=== PATIENT | female | born 1955 ===

== ENCOUNTER 2023-07-22 04:24 | Inpatient (IN) | payer MEDICAID, SELFPAY ==
[2023-07-22] VITALS (7 sets, daily range): BP systolic 113–179; BP diastolic 44–72; PULSE 86–98; RESP 16–28; TEMP 36.4–37.1; O2SAT 94–100; BMI 26.9
--- NOTE | ~2023-07-22 | CT_ITS ---
CT of the Abdomen and Pelvis: Indication: Abdominal pain Technique: 2.5 mm axial scans were obtained through the abdomen and pelvis following intravenous adm inistration of 100 cc of Omnipaque 350. Dose reduction technique was used on this scan by utilizing a utomated exposure control and iterative reconstruction technique. The dose-length product (DLP) was 4 00.35 mGy-cm. Findings: Scans through the lung bases are unremarkable. The liver, spleen, pancreas, gallbladder, adrenals and left kidney are within normal limits. There is extensive right perinephric stranding/fluid, with mild right hydronephrosis, and mildly delayed righ t nephrogram as compared to the left side. No radiopaque stones seen currently. No evidence of aortic aneurysm. No lymphadenopathy. No bowel obstruction or bowel wall thickening. There is no evidence to suggest acute appendicitis. Images through the pelvis were performed. Urinary bladder unremarkable. No adnexal mass seen. No pelv ic ascites. Impression: Mild right hydroureteronephrosis with extensive right perinephric fluid/stranding and mildly delayed right nephrogram. Findings suggest sequela of recently passed stone. No definite stone seen currently . No definite evidence for pyelonephritis. Correlate with urinalysis. Reviewed, dictated and finalized at location . ER Impression: Mild right hydroureteronephrosis with extensive right perinephric fluid/strandi ng and mildly delayed right nephrogram. Findings suggest sequela of recently pa ssed stone. No definite stone seen currently. No definite evidence for pyelonep hritis. Correlate with urinalysis.
--- NOTE | 2023-07-22 05:07 | ED.GENADULT ---
HPI - General Adult General Chief complaint: Abdominal Pain Stated complaint: RLQ pain Time Seen by Provider: 07/22/23 04:55 History of Present Illness HPI narrative: patient 68-year-old female who presents emergency department with chief complaint of right lower quadrant abdominal pain. Patient reports been having pain since yesterday reports that some nausea and vomiting with this as well denies constipation reports she is passing gas and had a normal bowel movement. Related Data Allergies Allergy/AdvReac Type Severity Reaction Status Date / Time No Known Allergies Allergy Verified 07/22/23 04:35 Review of Systems Review of Systems: A 10 system review of systems was completed on the patient and is negative except for what is stated in the HPI. Nursing and ancillary documentation was reviewed. Exam Narrative: GENERAL: Well-appearing, well-nourished, and in no acute distress. HEAD: Normocephalic, atraumatic. EYES: PERRLA and EOMI. ENT: Nares clear, no rhinorrhea or epistaxis. Mucous membranes moist. NECK: Supple. CHEST: Clear to auscultation. No respiratory distress. HEART: Regular rate and rhythm. No murmur heard. Normal peripheral pulses. ABDOMEN: Soft, Tenderness to palpation the right lower quadrant, nondistended, normal active bowel sounds. EXTREMITIES: Normal range of motion. No edema. SKIN: Warm, dry, no rash. NEURO: No focal deficits. Alert and oriented x3. PSYCH: Normal mood and affect. Course Vital Signs Vital signs: Vital Signs Temperature 36.4 C 07/22/23 04:28 Pulse Rate 98 07/22/23 04:28 Respiratory Rate 16 07/22/23 04:28 Blood Pressure 179/72 H 07/22/23 04:28 Pulse Oximetry 100 07/22/23 04:28 Oxygen Delivery Room Air 07/22/23 04:28 Temperature 36.4 C 07/22/23 04:28 Pulse Rate 98 07/22/23 04:33 Respiratory Rate 26 H 07/22/23 04:33 Blood Pressure 164/64 H 07/22/23 04:33 Pulse Oximetry 99 07/22/23 04:33 Oxygen Delivery Room Air 07/22/23 04:28 Medical Decision Making [facility] Narrative Medical decision making narrative: differential diagnosis includes appendicitis, diverticulitis, colitis, UTI, pyelonephritis, obstructing ureterolithiasis laboratory studies showed white count [id number] urinalysis showed 50-100 wbc's in the urine creatinine was 1.1 CT scan of the abdomen pelvis showed Mild right hydroureteronephrosis with extensive right perinephric fluid/stranding and mildly delayed right nephrogram. Findings suggest sequela of recently passed stone. No definite stone seen currently. No definite evidence for pyelonephritis. Correlate with urinalysis. Vital Signs Vital Signs: Vital Signs Temperature 36.4 C 07/22/23 04:28 Pulse Rate 98 07/22/23 04:28 Respiratory Rate 16 07/22/23 04:28 Blood Pressure 179/72 H 07/22/23 04:28 Pulse Oximetry 100 07/22/23 04:28 Oxygen Delivery Room Air 07/22/23 04:28 Temperature 36.4 C 07/22/23 04:28 Pulse Rate 98 07/22/23 04:33 Respiratory Rate 26 H 07/22/23 04:33 Blood Pressure 164/64 H 07/22/23 04:33 Pulse Oximetry 99 07/22/23 04:33 Oxygen Delivery Room Air 07/22/23 04:28 Discharge Plan Discharge Clinical Impression: Acute pyelonephritis, Leukocytosis Patient Disposition: Still a Patient Condition: Stable Instructions: Antibiotic Form Follow-up/Referrals: PHYSICIAN,GENERATOR REBUILDER [Primary Care Provider] - Time of Disposition: 06:23
[2023-07-22] MEDS: MORPHINE SULFATE (*CRX) 4 MG/ML INJ IV PUSH (05:18)
[2023-07-22] MEDS: ONDANSETRON INJ 4 MG/2 ML VIAL IV PUSH (05:19)
[2023-07-22] MEDS: SODIUM CHLORIDE 0.9% IV 1,000 ML 999 ML IV CONT (05:19)
[2023-07-22 05:22] LABS: Appearance Urine Clear (Clear); Bacteria Urine None Seen /hpf; Bilirubin Urine Negative (Negative); Blood Urine Negative (Negative); Color Urine Yellow (Yellow); Glucose Urine UA 3+ mg/dL (Negative); Ketones Urine Negative (Negative); Leukocyte Esterase Ur 1+ LEU/UL (Negative); Nitrate Urine Negative (Negative); Non Pathogenic Casts 0-2; Protein Urine Trace mg/dL (Negative); RBC Urine 0-2 /hpf (0-2); Specific Grav Ur 1.014 (1.001-1.035); Squamous Epithelial Cell Urine None seen /hpf (Few); Urobilinogen Urine 0.2 mg/dL (<2.0); WBC Urine 51-100 /hpf; pH Urine 7.5 (5.0-9.0)
[2023-07-22 05:25] LABS: Hematocrit 39.2 % (37.0-47.0); Hemoglobin 13.2 g/dL (12.0-15.0); Mean Corpuscular HGB Conc 33.7 g/dl (32-36); Mean Corpuscular Hemoglobin 28.2 pg (26-34); Mean Corpuscular Volume 83.8 fl (80-100); Mean Platelet Volume 11.3 fl (7.4-10.4); Platelet Count Result 286 k/mm3 (150-375); Red Blood Count 4.68 M/mm3 (4.2-5.4); Red Cell Distribution Width 12.7 % (11.5-14.5); White Blood Count 21.7 K/mm3 (4.5-10.0)
[2023-07-22 05:34] LABS: Lactic Acid Reflex 1.3 mmol/L (0.7-2.0)
[2023-07-22 05:36] LABS: Alanine Aminotransferase 21 U/L (6-35); Albumin Level 3.7 g/dL (3.5-5.1); Alkaline Phosphatase 135 U/L (38-126); Anion Gap 5 mmol/L (8-16); Aspartate Amino Transferase 31 U/L (14-36); Bilirubin,Total 0.9 mg/dL (0.2-1.3); Blood Urea Nitrogen 24 mg/dL (7-17); Carbon Dioxide 28 mmol/L (22-30); Chloride 102 mmol/L (98-107); Estimated Glomerular Filt Rate 50; Glucose 278 mg/dL (65-110); Lipase 118 U/L (23-300); Potassium 3.8 mmol/L (3.4-5.0); Sodium 135 mmol/L (137-145)
[2023-07-22 05:48] LABS: Add Urine Microscopic? YES
[2023-07-22 06:02] LABS: Band Neutrophils Percent 9 % (0-6); Lymphocytes Absolute Manual 0.43 K/mm3 (1.1-4.5); Monocytes Absolute Manual 0.65 K/mm3 (0.1-0.90); Monocytes Percent Manual 3 % (3-9); Neutrophils Absolute Manual 20.61 K/mm3 (1.7-7.2); Neutrophils Percent Manual 86 % (46-73); Platelet Estimate Adequate (Adequate); Total Cells Counted 100
[2023-07-22 06:03] LABS: Schistocytes None Seen (NORMAL)
--- NOTE | 2023-07-22 08:03 | ADMGEN ---
This patient, Alhaji Darby, was admitted to [address] [place] [address] Room 307-02 at 0800. Patient/family oriented to hospital policies and general routines including ID bracelet, bed and alarms, visiting hours, pain management, procedures, bathroom and other care routines, personal items, smoking policy, room service/diet, and visiting hours. Information on how to activate the Rapid Response Team has been discussed. Patient/Family are encouraged to report perceived risks to care and to ask questions if they do not understand what they are told or what they should do.
--- NOTE | 2023-07-22 08:52 | PM.IMHP ---
H&P: HPI History of Present Illness Date/Time: 07/22/23 08:52 Chief Complaint: Right flank pain Nausea and vomiting Narrative: Alhaji Darby is a 68 yo F with a mHx significant for obesity She presents with concerns of right flank pain with radiates downwards to the pelvis, is intermittent, rated 8-10, no known aggravating or alleviating factors, associated with nausea, vomiting, chills, malaise, fatigue and anorexia. She denies dizziness, chest pain, LOC, skin/joint changes. She does not smoke/chew tobacco, vape nicotine or consume recreational drugs; her family Hx is not contributory to the PC Work-up findings: UA: +glycosuria; +LE; WBC 51-100; -ve Bacteria; -ve Nitrite WBC 21 Hb 13 Platelet 286 Na 135 AG 5 BUN 24 Cr 1.1 GFR 50 ALP 135 CTAP: Mild right hydroureteronephrosis with extensive right perinephric fluid/stranding and mildly delayed right nephrogram. Findings suggest sequela of recently passed stone. No definite stone seen currently. No definite evidence for pyelonephritis. Correlate with urinalysis. She will be admitted, evaluated and managed for UTI with pyelonephritis. Review of Systems Constitutional: Constitutional: Reports body ache(s) and Reports fatigue ENT: Reports system reviewed and no additional complaints, except as documented Cardiovascular: Cardiovascular: Reports no additional cardiovascular complaints Respiratory: Respiratory: Reports no additional respiratory complaints Gastrointestinal: Gastrointestinal: Reports nausea and Reports vomiting Genitourinary: Genitourinary: Reports flank pain (right) Musculoskeletal: Musculoskeletal: Reports no additional musculoskeletal complaints Integumentary/Breasts: Skin/Breast: Reports dry skin Neurologic: Reports system reviewed and no additional complaints, except as documented Psychiatric: Psychiatric: Reports no additional psychiatric complaints [facility] Social History Social History Smoking status: Never smoker Alcohol intake: never Substance use: never Do You Feel Safe in your Home?: Yes Lack of Transportation: No Lack of Food: Never True Current Housing: I Have Housing Concerned About Future Housing: No Difficulty Paying Gas/Electric Bills: No Difficulty Paying for Meds: No Currently Unemployed: No Education: High School Diploma/GED Difficulty w/ Childcare or Family Care: No Spiritual care concerns: No Meds Home Medications and Allergies Home Medications Medication Instructions Recorded Confirmed Type No Home Medications 07/22/23 07/22/23 History Allergies Allergy/AdvReac Type Severity Reaction Status Date / Time No Known Allergies Allergy Verified 07/22/23 04:35 Vital Signs Vital Signs - 24 hr 07/22/23 04:28 07/22/23 04:33 07/22/23 05:43 Temperature 97.6 F Pulse Rate 98 98 87 Respiratory Rate 16 26 H 28 H Blood Pressure 179/72 H 164/64 H 150/61 H Pulse Oximetry 100 99 94 Oxygen Delivery Room Air 07/22/23 07:19 Temperature Pulse Rate 86 Respiratory Rate 23 H Blood Pressure 169/71 H Pulse Oximetry 96 Oxygen Delivery Exam Const: General: in distress HENMT: Ears: TM's normal bilaterally Mouth: Yes moist mucous membranes Eyes: General: appearance normal, both eyes and all related structures Pupils: Equal, round and reactive pupils present Neck: Neck: supple Resp: Effort & Inspection: normal respiratory effort Auscultation: clear to auscultation bilaterally and rales Cardio: Rate: regular rate Rhythm: regular rhythm GI: GI Palp: Yes Soft to palpation Auscultation: normal bowel sounds Skin: General skin exam: normal color Neuro: General: gait normal Motor exam (neuro): 5/5 motor strength present throughout Extrem: General: normal to inspection Psych: Mental Status: mental status grossly normal H&P: Results Labs Labs: Short CBC 07/22/23 Range/Units 05:1
[2023-07-22] MEDS: KETOROLAC 15 MG/ML VIAL (*BKC) IV PUSH ×3 (09:41→20:22)
[2023-07-22] MEDS: HYDROmorphone HCL INJ (*CRX) 1 MG/ML SYR 0.5 MG IV PUSH (09:42)
[2023-07-22] MEDS: PIPERACILLN/TAZ 3.375GM/NS50ML 3.375 GM/50 ML BAG IVPB ×3 (09:43→20:22)
[2023-07-22] MEDS: SODIUM CHLORIDE 0.9% IV 1,000 ML 100 ML IV CONT ×2 (09:43→20:21)
[2023-07-22] MEDS: ENOXAPARIN 40 MG/0.4 ML SYRINGE SUB-Q (09:46)
--- NOTE | 2023-07-22 15:52 | WPDURCON ---
Assessment and Plan Assessment and plan (1) Acute pyelonephritis: Code(s): N10 - Acute pyelonephritis Status: Acute Assessment and Plan: Radiographic findings appear consistent with acute pyelonephritis and patient endorses right flank pain. Continue with empiric antibiotics while awaiting culture results. No indication for surgical intervention at this time. Will monitor clinically and consider repeat CT scan tomorrow if lack of improvement. Urology Consult Note HPI Date Seen: 07/22/23 Requesting Physician: Leslie Hollingsworth MD Primary Care Provider: FINANCIAL SYSTEMS MANAGER PHYSICIAN Consult Narrative Narrative: Mehnaz Mane is a 68 year old female who is being seen in consultation for evaluation of right flank pain. She presented to the emergency department this morning with complaints of right lower quadrant and right flank pain. On arrival, she had a CT scan of her abdomen and pelvis which showed extensive right perinephric stranding with mild right hydronephrosis and mildly delayed right nephrogram without any visible stones. Findings may be related to recently passed stone versus possible pyelonephritis. The patient denies any history of kidney stones and does not believe that she passed a recent stone. She has no prior urologic issues and has never seen a urologist in the past. She complains of right flank pain. Denies back pain. Denies dysuria, hematuria, fever, or chills. She endorses some nausea this morning but this has resolved. She is tolerating her diet. She is afebrile and her vital signs are stable. Her white blood cell count is elevated at 21.7. Creatinine is minimally elevated at 1.1. No prior labs to establish baseline. UA is abnormal with positive leukocytes. A urine culture is pending. Of note, patient is Persian-speaking only. Information was obtained with assistance of virtual pheresis specialist. Review of Systems Review of Systems: All systems reviewed & are unremarkable except as noted in HPI and below [facility] Surgical History Surgical History (Updated 07/22/23 @ 15:58 by Patricia Harmon PA-C) No pertinent past surgical history Social History Social History Smoking status: Never smoker Alcohol intake: never Substance use: never Do You Feel Safe in your Home?: Yes Lack of Transportation: No Lack of Food: Never True Current Housing: I Have Housing Concerned About Future Housing: No Difficulty Paying Gas/Electric Bills: No Difficulty Paying for Meds: No Currently Unemployed: No Education: High School Diploma/GED Difficulty w/ Childcare or Family Care: No Spiritual care concerns: No Meds Home Medications and Allergies Home Medications Medication Instructions Recorded Confirmed Type No Home Medications 07/22/23 07/22/23 History Allergies Allergy/AdvReac Type Severity Reaction Status Date / Time No Known Allergies Allergy Verified 07/22/23 04:35 Vital Signs Vital Signs - 24 hr 07/22/23 04:28 07/22/23 04:33 07/22/23 05:43 Temperature 97.6 F Pulse Rate 98 98 87 Respiratory Rate 16 26 H 28 H Blood Pressure 179/72 H 164/64 H 150/61 H Pulse Oximetry 100 99 94 Oxygen Delivery Room Air 07/22/23 07:19 07/22/23 09:27 07/22/23 09:40 Temperature Pulse Rate 86 Respiratory Rate 23 H Blood Pressure 169/71 H Pulse Oximetry 96 96 Oxygen Delivery Room Air Room Air Exam Narrative: General: Awake, alert, comfortable, no acute distress HEENT: Normocephalic, atraumatic, sclerae anicteric Respiratory: Normal respiratory effort, no accessory muscle use Abdomen: Nondistended, soft, your to palpation in right lower quadrant and flank. No CVA tenderness Skin: Normal coloration, warm and dry Neurologic: No focal neuro deficits noted Psychiatric: Appropriate mood and affect, judgment and insight intact Results Labs 07/22/23 05:15
[2023-07-22 17:16] LABS: Hemoglobin A1C 11.7 % (<5.7)
[2023-07-23] MEDS: KETOROLAC 15 MG/ML VIAL (*BKC) IV PUSH (03:24)
[2023-07-23 04:35] VITALS: BP 119/64; PULSE 78; RESP 16; TEMP 36.9; O2SAT 98
[2023-07-23] MEDS: PIPERACILLN/TAZ 3.375GM/NS50ML 3.375 GM/50 ML BAG IVPB (05:39)
[2023-07-23] MEDS: SODIUM CHLORIDE 0.9% IV 1,000 ML 100 ML IV CONT ×2 (05:39→17:38)
[2023-07-23 07:17] LABS: Basophils Absolute Auto 0.1 K/mm3 (0.0-0.1); Basophils Percent Auto 0.4 % (0.2-1.2); Eosinophils Absolute Auto 0.1 K/mm3 (0-0.3); Eosinophils Percent Auto 0.3 % (0-4.4); Hematocrit 34.2 % (37.0-47.0); Immature Granulocyte Percent A 0.6 % (0-0.5); Lymphocytes Absolute Auto 0.61 K/mm3 (0.9-3.2); Lymphocytes Percent Auto 3.5 % (18.3-44.2); Mean Corpuscular HGB Conc 32.2 g/dl (32-36); Mean Corpuscular Hemoglobin 28.2 pg (26-34); Mean Corpuscular Volume 87.7 fl (80-100); Monocytes Absolute Auto 0.8 K/mm3 (0.1-0.6); Monocytes Percent Auto 4.3 % (2.6-8.5); Neutrophils Absolute Auto 15.8 K/mm3 (1.3-6.7); Neutrophils Percent Auto 90.9 % (45.5-73.1); Platelet Count Result 209 k/mm3 (150-375); Red Cell Distribution Width 13.3 % (11.5-14.5); White Blood Count 17.4 K/mm3 (4.5-10.0)
[2023-07-23 07:28] LABS: Alanine Aminotransferase 38 U/L (6-35); Alkaline Phosphatase 110 U/L (38-126); Anion Gap 5 mmol/L (8-16); Aspartate Amino Transferase 58 U/L (14-36); Bilirubin,Total 0.7 mg/dL (0.2-1.3); Blood Urea Nitrogen 24 mg/dL (7-17); Calcium 8.1 mg/dL (8.4-10.2); Carbon Dioxide 27 mmol/L (22-30); Chloride 104 mmol/L (98-107); Estimated CRCL calculation 27 ml/min; Estimated Glomerular Filt Rate 35; Glucose 260 mg/dL (65-110); Potassium 4.1 mmol/L (3.4-5.0); Sodium 136 mmol/L (137-145)
[2023-07-23] MEDS: ENOXAPARIN 40 MG/0.4 ML SYRINGE SUB-Q (08:36)
[2023-07-23] MEDS: ACETAMINOPHEN 325 MG TABLET 650 MG PO ×2 (08:44→16:35)
--- NOTE | 2023-07-23 09:48 | WPDUROPN2 ---
Progress Note: A&P Assessment and Plan (1) Acute pyelonephritis: Code(s): N10 - Acute pyelonephritis Status: Acute Assessment and Plan: Radiographic findings appear consistent with acute pyelonephritis and patient endorses right flank pain. Urine culture with growth of E coli. No indication for surgical intervention at this time. WBC has improved and she remains afebrile. Continue culture specific antibiotics. Continue to monitor clinically, consider repeat imaging if lack of improvement (2) Bacteremia: Code(s): R78.81 - Bacteremia Status: Acute Assessment and Plan: Preliminary blood cultures with growth of Gram-negative bacilli, continue empiric antibiotics per primary team while awaiting final cultures (3) RITA (acute kidney injury): Code(s): N17.9 - Acute kidney failure, unspecified Status: Acute Assessment and Plan: Slight increase in creatinine to 1.5 today. Continue to monitor serum creatinine closely. Subjective Subjective Date/Time Seen: 07/23/23 09:48 Interval history: She is feeling well today. Reports improvement in her right flank pain. Tolerating diet. Remains afebrile. Vital signs are stable. WBC has improved to 17.4. Hemoglobin is stable. Slight increase in creatinine to 1.5. Urine culture with growth of E coli and preliminary blood cultures with Gram-negative bacilli. Review of Systems Review of Systems: All systems reviewed & are unremarkable except as noted in HPI and below Exam Narrative: General: Awake, alert, comfortable, no acute distress HEENT: Normocephalic, atraumatic, sclerae anicteric Respiratory: Normal respiratory effort, no accessory muscle use Abdomen: Nondistended, soft, minimally tender to palpation in right lower quadrant and flank. No CVA tenderness Skin: Normal coloration, warm and dry Neurologic: No focal neuro deficits noted Psychiatric: Appropriate mood and affect, judgment and insight intact Objective Data Vital Signs Vital Signs: Vital Signs - 24 hr 07/22/23 16:00 07/22/23 21:04 07/22/23 20:00 Temperature 98.6 F 98.8 F Pulse Rate 92 90 Respiratory Rate 21 H 16 Blood Pressure 126/53 L 113/44 L Pulse Oximetry 97 96 Oxygen Delivery Room Air 07/23/23 04:35 Temperature 98.5 F Pulse Rate 78 Respiratory Rate 16 Blood Pressure 119/64 Pulse Oximetry 98 Oxygen Delivery Intake/Output Intake/Output: Intake & Output 07/20/23 07/21/23 07/22/23 07/23/23 23:59 23:59 23:59 23:59 Intake Total 3340 1360 Balance 3340 1360 Meds/Results Medications: Active Medications Generic Name Dose Route Start Last Admin Trade Name Freq PRN Reason Stop Dose Admin Acetaminophen 650 mg 07/22/23 08:53 07/23/23 08:44 Acetaminophen 325 Mg Tablet PO 650 mg Q4H PRN Administration Mild Pain (1-3) or Fever Enoxaparin Sodium 40 mg 07/22/23 09:00 07/23/23 08:36 Enoxaparin 40 Mg/0.4 Ml Syringe SUB-Q 40 mg DAILY GREG Administration Sodium Chloride 1,000 mls @ 100 mls/hr 07/22/23 08:55 07/23/23 05:39 Normal Saline Iv IV CONT 100 mls/hr .Q10H GREG Administration Ceftriaxone Sodium 2 gm in 100 mls @ 200 mls/hr 07/23/23 12:00 Rocephin 2 Gm/Ns 100 Ml IVPB DAILY GREG Radiology Results: ITS Impressions Abdomen/Pelvis CT 07/22/23 06:03 Impression: Mild right hydroureteronephrosis with extensive right perinephric fluid/stranding and mildly delayed right nephrogram. Findings suggest sequela of recently passed stone. No definite stone seen currently. No definite evidence for pyelonephritis. Correlate with urinalysis. Labs Labs: Laboratory Results - last 24 hr 07/22/23 07/23/23 16:41 06:52 WBC 17.4 H RBC 3.90 L Hgb 11.0 L Hct 34.2 L MCV 87.7 MCH 28.2 MCHC 32.2 RDW 13.3 Plt Count 209 MPV 12.0 H Immature Gran % (Auto) 0.6 H Neut % (Auto) 90.9 H Lymph % (Auto) 3.5 L [place] % (Auto)
--- NOTE | 2023-07-23 10:33 | PM.IMPN ---
Progress Note: A&P Assessment and Plan (1) Acute pyelonephritis: Code(s): N10 - Acute pyelonephritis Status: Acute (2) Bacteremia: Code(s): R78.81 - Bacteremia Status: Acute (3) RITA (acute kidney injury): Code(s): N17.9 - Acute kidney failure, unspecified Status: Acute Plan Sepsis w/o septic shock -Secondary to UTI/Pyelonephritis -UA and blood cultures gram negative bacilli -lactic pending wasn't drawn on admission -Ceftriaxone 2g IV pending sensitivity Pyelonephritis -CT Mild right hydroureteronephrosis with extensive right perinephric fluid/stranding and mildly delayed right nephrogram - urology consult and following - UA and blood shows g negative bacilli - ceftriaxone 2 g IV and sensitivities - if no resolution will need follow-up CT - WBC trending down bacteremia - gram-negative bacilli likely secondary to UTI - ceftriaxone 2 g IV pending sensitivities - follow-up blood cultures 48-72 hours post ABX therapy for clearance UTI -Urine cultures and blood cultures -Continue IV hydration. -Monitor CBC, CMP watch for sepsis. -Monitor vital signs. -Ceftriaxone -Monitor for obstructive uropathy current pyelonephritis -F/U CT if no improvement on Diabetes-NEW ONSET -Accu-Cheks a.c. HS -sliding scale insulin -started on 13U lantus HS -Hemoglobin A1c goal less than 7 Currently 11 -lipid panel pending -Diabetic diet -consult to dietitian -encourage lifestyle modifications and weight loss -Optimize Brian inhibitors and statins. -Watch for hypoglycemia/hypoglycemic protocol ordered Code status: Full code per patient DVT prophylaxis: SCD Stress ulcer prophylaxis: Protonix 40 daily PT/OT notes: ambulatory Disposition: patient admitted to medical-surgical unit for further evaluation and treatment pyelonephritis urology following if no resolution may need follow-up CT to rule out obstruction. Continued IV antibiotic therapy the sensitivities will also need follow-up blood cultures and 40-72 hours. Patient is ambulatory and will discharge with family medically stable. -Patient's previous records reviewed on admission -ER notes reviewed in detail on admission -discussed all findings and current treatment plan with patient/Family/POA -Consultations reviewed for recommendations -Patient's disposition for safe discharge discussed with sample case porter Dictation performed by [employer] direct speech recognition software, therefore environmental compliance technician variants and typographical errors may occur. Subjective Date/time seen: 07/23/23 10:33 Interval history: Chief Complaint: Right flank pain Nausea and vomiting Narrative: Alhaji Darby is a 68 yo F with a mHx significant for obesity She presents with concerns of right flank pain with radiates downwards to the pelvis, is intermittent, rated 8-10, no known aggravating or alleviating factors, associated with nausea, vomiting, chills, malaise, fatigue and anorexia. She denies dizziness, chest pain, LOC, skin/joint changes. She does not smoke/chew tobacco, vape nicotine or consume recreational drugs; her family Hx is not contributory to the PC Work-up findings: UA: +glycosuria; +LE; WBC 51-100; -ve Bacteria; -ve Nitrite WBC 21 Hb 13 Platelet 286 Na 135 AG 5 BUN 24 Cr 1.1 GFR 50 ALP 135 CTAP:?Mild right hydroureteronephrosis with extensive right perinephric fluid/stranding and mildly delayed right nephrogram. Findings suggest sequela of recently passed stone. No definite stone seen currently. No definite evidence for pyelonephritis. Correlate with urinalysis. She will be admitted, evaluated and managed for UTI with pyelonephritis 07/23: Patient macedonian speaking only at bedside stratus hyster machine operator used to provide information. Patient reported continued RT flank pain that radiated to her right abdominal area. Denied any difficulty urinating, fever, or chills. Blood cult
[2023-07-23 11:28] LABS: Glucose Point of Care 230 mg/dl (65-105)
[2023-07-23] MEDS: INSULIN ASPART (*BKC) 100 UNITS/ML SUB-Q ×2 (11:38→16:36)
[2023-07-23] MEDS: cefTRIAXone 2 GM/NS 100 ML 2 GM/100 ML BAG IVPB (11:47)
[2023-07-23 12:38] LABS: Cholesterol 106 mg/dL (0-200); HDL Direct 25 mg/dL; Triglycerides 93 mg/dL (<150)
[2023-07-23 12:48] LABS: LDL Cholesterol Direct 60 mg/dL
[2023-07-23 14:10] VITALS: BP 137/59; PULSE 83; RESP 16; TEMP 36.7; O2SAT 97
[2023-07-23 16:30] LABS: Glucose Point of Care 238 mg/dl (65-105)
[2023-07-23 20:00] VITALS: BP 153/66; PULSE 77; RESP 18; TEMP 37.1; O2SAT 96
[2023-07-23] MEDS: INSULIN GLARGINE (*BKC) 100 UNITS/ML 13 UNITS SUB-Q (20:20)
[2023-07-23 20:28] LABS: Glucose Point of Care 213 mg/dl (65-105)
[2023-07-24] VITALS (8 sets, daily range): BP systolic 172–189; BP diastolic 55–80; PULSE 77–85; RESP 18; TEMP 36.3–37.6; O2SAT 96–98
[2023-07-24 07:25] LABS: Basophils Absolute Auto 0.1 K/mm3 (0.0-0.1); Basophils Percent Auto 0.4 % (0.2-1.2); Eosinophils Absolute Auto 0.2 K/mm3 (0-0.3); Eosinophils Percent Auto 1.1 % (0-4.4); Hematocrit 34.1 % (37.0-47.0); Immature Granulocyte Absolute 0.08 K/mm3 (0.00-0.031); Immature Granulocyte Percent A 0.6 % (0-0.5); Lymphocytes Absolute Auto 0.93 K/mm3 (0.9-3.2); Lymphocytes Percent Auto 6.5 % (18.3-44.2); Mean Corpuscular HGB Conc 32.3 g/dl (32-36); Mean Corpuscular Hemoglobin 28.1 pg (26-34); Mean Platelet Volume 11.7 fl (7.4-10.4); Monocytes Absolute Auto 0.8 K/mm3 (0.1-0.6); Monocytes Percent Auto 5.8 % (2.6-8.5); Neutrophils Absolute Auto 12.2 K/mm3 (1.3-6.7); Neutrophils Percent Auto 85.6 % (45.5-73.1); Platelet Count Result 183 k/mm3 (150-375); Red Blood Count 3.92 M/mm3 (4.2-5.4); Red Cell Distribution Width 13.3 % (11.5-14.5); White Blood Count 14.2 K/mm3 (4.5-10.0)
[2023-07-24 07:39] LABS: Blood Urea Nitrogen 15 mg/dL (7-17)
[2023-07-24 07:40] LABS: Alanine Aminotransferase 31 U/L (6-35); Alkaline Phosphatase 143 U/L (38-126); Anion Gap 4 mmol/L (8-16); Aspartate Amino Transferase 32 U/L (14-36); Bilirubin,Total 0.6 mg/dL (0.2-1.3); Calcium 8.4 mg/dL (8.4-10.2); Carbon Dioxide 24 mmol/L (22-30); Chloride 108 mmol/L (98-107); Estimated CRCL calculation 44 ml/min; Estimated Glomerular Filt Rate > 60; Glucose 174 mg/dL (65-110); Potassium 3.7 mmol/L (3.4-5.0); Sodium 136 mmol/L (137-145)
[2023-07-24 07:40] LABS: Glucose Point of Care 172 mg/dl (65-105)
[2023-07-24] MEDS: ENOXAPARIN 40 MG/0.4 ML SYRINGE SUB-Q (08:19)
[2023-07-24] MEDS: PANTOPRAZOLE 40 MG TABLET PO (08:20)
[2023-07-24] MEDS: LOSARTAN POTASSIUM 50 MG TABLET PO (08:20)
[2023-07-24] MEDS: cefTRIAXone 2 GM/NS 100 ML 2 GM/100 ML BAG IVPB (08:23)
--- NOTE | 2023-07-24 09:12 | WPDUROPN2 ---
Progress Note: A&P Assessment and Plan (1) Acute pyelonephritis: Code(s): N10 - Acute pyelonephritis Status: Acute Assessment and Plan: CT is consistent with pyelo. Is clinically improving with improvement in wbc ct and normalized Cr. Has Ecoli in blood and urine. Blood cultures have sensitivities and her Ecoli is sensitive to rocephin. Will need 2 wks of abx therapy. Recommend repeating blood cultures to ensure resolution of bacteremia prior to discharge. Will hold off on further imaging at this time as she is clinically improving with resolution of R flank pain and improvement in wbc ct and Cr. (2) Bacteremia: Code(s): R78.81 - Bacteremia Status: Acute Assessment and Plan: Continue rocephin. Will need to complete 2 wks of abx. Recommend repeating blood cultures to ensure resolution of bacteremia. (3) RITA (acute kidney injury): Code(s): N17.9 - Acute kidney failure, unspecified Status: Acute Assessment and Plan: REsolved today; Cr has normalized Subjective Subjective Date/Time Seen: 07/24/23 09:12 Interval history: Encounter performed with medical farm products shipper this AM. Pt has been afebrile. No flank pain. Notes some mild SP pain. No difficulty voiding Review of Systems Review of Systems: All systems reviewed & are unremarkable except as noted in HPI and below Exam Narrative: General: Awake, alert, comfortable, no acute distress HEENT: Normocephalic, atraumatic, sclerae anicteric Respiratory: Normal respiratory effort, no accessory muscle use Abdomen: Nondistended, soft, minimally tender to palpation over SP area. No CVAT Skin: Normal coloration, warm and dry Neurologic: No focal neuro deficits noted Psychiatric: Appropriate mood and affect, judgment and insight intact Objective Data Vital Signs Vital Signs: Vital Signs - 24 hr 07/23/23 14:10 07/23/23 20:00 07/23/23 20:00 Temperature 36.7 C 37.1 C Pulse Rate 83 77 Respiratory Rate 16 18 Blood Pressure 137/59 L 153/66 H Pulse Oximetry 97 96 Oxygen Delivery Room Air 07/24/23 00:00 07/24/23 04:00 07/24/23 08:00 Temperature 36.7 C 36.9 C 36.6 C Pulse Rate 77 82 85 Respiratory Rate 18 18 18 Blood Pressure 178/63 H 181/80 H 189/78 H Pulse Oximetry 96 96 96 Oxygen Delivery Intake/Output Intake/Output: Intake & Output 07/21/23 07/22/23 07/23/23 07/24/23 23:59 23:59 23:59 23:59 Intake Total 3340 3540 640 Balance 3340 3540 640 Meds/Results Medications: Active Medications Generic Name Dose Route Start Last Admin Trade Name Freq PRN Reason Stop Dose Admin Acetaminophen 650 mg 07/22/23 08:53 07/23/23 16:35 Acetaminophen 325 Mg Tablet PO 650 mg Q4H PRN Administration Mild Pain (1-3) or Fever Dextrose 12.5 gm 07/23/23 10:47 Dextrose 50% 25 Gm/50 Ml Syringe IV PUSH PRN PRN Hypoglycemia Protocol Enoxaparin Sodium 40 mg 07/22/23 09:00 07/24/23 08:19 Enoxaparin 40 Mg/0.4 Ml Syringe SUB-Q 40 mg DAILY GREG Administration Glucagon 1 mg 07/23/23 10:47 Glucagon For Inj 1 Mg Vial IM PRN PRN Hypoglycemia Protocol Glucose 15 gm 07/23/23 10:47 Glucose Oral Gel 15 Gm Of Glucse In 37.5 Gm Tube PO PRN PRN Hypoglycemia Protocol Sodium Chloride 1,000 mls @ 100 mls/hr 07/22/23 08:55 07/23/23 17:38 Normal Saline Iv IV CONT 100 mls/hr .Q10H GREG Administration Ceftriaxone Sodium 2 gm in 100 mls @ 200 mls/hr 07/23/23 12:00 07/24/23 08:53 Rocephin 2 Gm/Ns 100 Ml IVPB Infused DAILY GREG Infusion Dextrose 1,000 mls @ 100 mls/hr 07/23/23 10:47 Dextrose 5% 1,000 Ml IVPB PRN PRN Hypoglycemia Protocol Insulin Aspart 2 - 5 units 07/23/23 12:00 07/24/23 07:43 Insulin Aspart (*Bkc) 100 Units/Ml SUB-Q Not Given TIDWM GREG Protocol Insulin Glargine 13 units 07/23/23 21:00 07/23/23 20:20 Insulin Glargine (*Bkc) 100
[2023-07-24 11:12] LABS: Glucose Point of Care 195 mg/dl (65-105)
[2023-07-24] MEDS: SODIUM CHLORIDE 0.9% IV 1,000 ML 100 ML IV CONT (12:04)
--- NOTE | 2023-07-24 12:21 | PM.IMPN ---
Progress Note: A&P Assessment and Plan (1) Acute pyelonephritis: Code(s): N10 - Acute pyelonephritis Status: Acute (2) Bacteremia: Code(s): R78.81 - Bacteremia Status: Acute (3) RITA (acute kidney injury): Code(s): N17.9 - Acute kidney failure, unspecified Status: Acute Plan Sepsis w/o septic shock-REOLVED -Secondary to UTI/Pyelonephritis -UA and blood cultures gram negative bacilli -lactic pending wasn't drawn on admission -Ceftriaxone 2g IV pending sensitivity Pyelonephritis -CT Mild right hydroureteronephrosis with extensive right perinephric fluid/stranding and mildly delayed right nephrogram - urology consult and following - UA and blood shows g negative bacilli - ceftriaxone 2 g IV 2 weeks 2/14 doses - if no resolution will need follow-up CT - WBC trending down bacteremia - gram-negative bacilli likely secondary to UTI - ceftriaxone 2 g IV ECOLI 2/14 doses given - follow-up blood cultures Pending UTI -Urine cultures and blood cultures -Continue IV hydration. -Monitor CBC, CMP watch for sepsis. -Monitor vital signs. -Ceftriaxone -Monitor for obstructive uropathy current pyelonephritis -F/U CT if no improvement on Diabetes-NEW ONSET -Accu-Cheks a.c. HS -sliding scale insulin -started on 13U lantus HS -Hemoglobin A1c goal less than 7 Currently 11 -lipid panel pending -Diabetic diet -consult to dietitian -encourage lifestyle modifications and weight loss -Optimize Brian inhibitors and statins. -Watch for hypoglycemia/hypoglycemic protocol ordered Code status: Full code per patient DVT prophylaxis: SCD Stress ulcer prophylaxis: Protonix 40 daily PT/OT notes: ambulatory Disposition: patient admitted to medical-surgical unit for further evaluation and treatment pyelonephritis urology following Continued IV antibiotic therapy will need 14 days/doses. Patient is self pay will likely need to stay hospitalized to complete IV antibiotic therapy. Patient is ambulatory and will discharge with family medically stable. -Patient's previous records reviewed on admission -ER notes reviewed in detail on admission -discussed all findings and current treatment plan with patient/Family/POA -Consultations reviewed for recommendations -Patient's disposition for safe discharge discussed with watch case polisher Dictation performed by [employer] direct speech recognition software, therefore insulator apprentice variants and typographical errors may occur. Time Spent With Patient Time with patient: 25 - 35 minutes Subjective Date/time seen: 07/24/23 12:21 Interval history: Chief Complaint: Right flank pain Nausea and vomiting Narrative: Alhaji Darby is a 68 yo F with a mHx significant for obesity She presents with concerns of right flank pain with radiates downwards to the pelvis, is intermittent, rated 8-10, no known aggravating or alleviating factors, associated with nausea, vomiting, chills, malaise, fatigue and anorexia. She denies dizziness, chest pain, LOC, skin/joint changes. She does not smoke/chew tobacco, vape nicotine or consume recreational drugs; her family Hx is not contributory to the PC Work-up findings: UA: +glycosuria; +LE; WBC 51-100; -ve Bacteria; -ve Nitrite WBC 21 Hb 13 Platelet 286 Na 135 AG 5 BUN 24 Cr 1.1 GFR 50 ALP 135 CTAP:?Mild right hydroureteronephrosis with extensive right perinephric fluid/stranding and mildly delayed right nephrogram. Findings suggest sequela of recently passed stone. No definite stone seen currently. No definite evidence for pyelonephritis. Correlate with urinalysis. She will be admitted, evaluated and managed for UTI with pyelonephritis 07/23: Patient qatari speaking only at bedside stratus direct chill caster used to provide information. Patient reported continued RT flank pain that radiated to her right abdominal area. Denied any difficulty urinating, fever, or ch
[2023-07-24 16:38] LABS: Glucose Point of Care 176 mg/dl (65-105)
[2023-07-24] MEDS: ACETAMINOPHEN 325 MG TABLET 650 MG PO ×2 (17:41→20:52)
[2023-07-24] MEDS: INSULIN GLARGINE (*BKC) 100 UNITS/ML 13 UNITS SUB-Q (20:49)
[2023-07-24 21:34] LABS: Glucose Point of Care 201 mg/dl (65-105)
[2023-07-25] VITALS: BP 168/57; PULSE 74; RESP 16; TEMP 37.2; O2SAT 99
[2023-07-25 04:00] VITALS: BP 187/73; PULSE 69; RESP 16; TEMP 36.5; O2SAT 97
[2023-07-25] MEDS: hydrALAZINE HCL 20 MG/ML VIAL 10 MG IV PUSH (06:58)
[2023-07-25 07:19] LABS: Basophils Absolute Auto 0.1 K/mm3 (0.0-0.1); Basophils Percent Auto 0.6 % (0.2-1.2); Eosinophils Absolute Auto 0.2 K/mm3 (0-0.3); Eosinophils Percent Auto 2.3 % (0-4.4); Hematocrit 36.9 % (37.0-47.0); Immature Granulocyte Absolute 0.05 K/mm3 (0.00-0.031); Immature Granulocyte Percent A 0.5 % (0-0.5); Lymphocytes Absolute Auto 0.96 K/mm3 (0.9-3.2); Lymphocytes Percent Auto 10.3 % (18.3-44.2); Mean Corpuscular HGB Conc 32.5 g/dl (32-36); Mean Corpuscular Volume 86.2 fl (80-100); Mean Platelet Volume 12.3 fl (7.4-10.4); Monocytes Absolute Auto 0.7 K/mm3 (0.1-0.6); Monocytes Percent Auto 7.7 % (2.6-8.5); Neutrophils Absolute Auto 7.3 K/mm3 (1.3-6.7); Neutrophils Percent Auto 78.6 % (45.5-73.1); Platelet Count Result 211 k/mm3 (150-375); Red Blood Count 4.28 M/mm3 (4.2-5.4); Red Cell Distribution Width 13.1 % (11.5-14.5); White Blood Count 9.3 K/mm3 (4.5-10.0)
[2023-07-25 07:32] LABS: Alanine Aminotransferase 27 U/L (6-35); Albumin Level 3.4 g/dL (3.5-5.1); Alkaline Phosphatase 174 U/L (38-126); Anion Gap 4 mmol/L (8-16); Aspartate Amino Transferase 35 U/L (14-36); Bilirubin,Total 0.6 mg/dL (0.2-1.3); Blood Urea Nitrogen 15 mg/dL (7-17); Calcium 9.2 mg/dL (8.4-10.2); Carbon Dioxide 28 mmol/L (22-30); Chloride 107 mmol/L (98-107); Estimated CRCL calculation 44 ml/min; Estimated Glomerular Filt Rate > 60; Glucose 169 mg/dL (65-110); Potassium 3.9 mmol/L (3.4-5.0); Sodium 139 mmol/L (137-145)
[2023-07-25 07:50] LABS: Glucose Point of Care 159 mg/dl (65-105)
[2023-07-25 07:56] VITALS: BP 161/58; PULSE 75; RESP 16; TEMP 36; O2SAT 100
[2023-07-25] MEDS: LOSARTAN POTASSIUM 50 MG TABLET 100 MG PO (09:58)
[2023-07-25] MEDS: cefTRIAXone 2 GM/NS 100 ML 2 GM/100 ML BAG IVPB (09:58)
[2023-07-25] MEDS: PANTOPRAZOLE 40 MG TABLET PO (09:58)
[2023-07-25] MEDS: ENOXAPARIN 40 MG/0.4 ML SYRINGE SUB-Q (10:00)
--- NOTE | 2023-07-25 10:55 | WPDUROPN2 ---
Progress Note: A&P Assessment and Plan (1) Acute pyelonephritis: Code(s): N10 - Acute pyelonephritis Status: Acute Assessment and Plan: CT is consistent with pyelo. Is clinically improving with improvement in wbc ct and normalized Cr. Has Ecoli in blood and urine, sensitive to cephalosporins. Anticipate she could complete the 2 wks of abx wiht PO cephalosporin at home if repeat blood cultures show resolution of bacteremia. Will hold off on further imaging at this time as she is clinically improving with resolution of R flank pain and improvement in wbc ct and Cr. (2) Bacteremia: Code(s): R78.81 - Bacteremia Status: Acute Assessment and Plan: Currently on rocephin. Urine and blood cultures both show Ecoli, sensitive to cephalosporins. Anticipate she could complete the 2 weeks of abx with PO cephalosporins if repeat blood cultures show resolution of bacteremia. (3) RITA (acute kidney injury): Code(s): N17.9 - Acute kidney failure, unspecified Status: Acute Assessment and Plan: Resolved; Cr has normalized Subjective Subjective Date/Time Seen: 07/25/23 10:55 Interval history: Encounter performed with assistance of medical entertainment reporter. Pt is feeling much better. Pain resolved. Afebrile Review of Systems Review of Systems: All systems reviewed & are unremarkable except as noted in HPI and below Exam Narrative: General: Awake, alert, comfortable, no acute distress HEENT: Normocephalic, atraumatic, sclerae anicteric Respiratory: Normal respiratory effort, no accessory muscle use Abdomen: Nondistended, soft, minimally tender to palpation over SP area. No CVAT Skin: Normal coloration, warm and dry Neurologic: No focal neuro deficits noted Psychiatric: Appropriate mood and affect, judgment and insight intact Objective Data Vital Signs Vital Signs: Vital Signs - 24 hr 07/24/23 12:00 07/24/23 16:00 07/24/23 17:41 Temperature 36.3 C L 37.6 C 37.6 C Pulse Rate 82 78 Respiratory Rate 18 18 Blood Pressure 185/74 H 181/66 H Pulse Oximetry 96 96 Oxygen Delivery 07/24/23 18:41 07/24/23 20:00 07/24/23 20:00 Temperature 37.2 C 37.2 C Pulse Rate 77 Respiratory Rate 18 Blood Pressure 172/55 H Pulse Oximetry 98 Oxygen Delivery Room Air 07/25/23 00:00 07/25/23 04:00 07/25/23 07:56 Temperature 37.2 C 36.5 C 36.0 C L Pulse Rate 74 69 75 Respiratory Rate 16 16 16 Blood Pressure 168/57 H 187/73 H 161/58 H Pulse Oximetry 99 97 100 Oxygen Delivery Intake/Output Intake/Output: Intake & Output 07/22/23 07/23/23 07/24/23 07/25/23 23:59 23:59 23:59 23:59 Intake Total 3340 3540 2120 240 Balance 3340 3540 2120 240 Meds/Results Medications: Active Medications Generic Name Dose Route Start Last Admin Trade Name Freq PRN Reason Stop Dose Admin Acetaminophen 650 mg 07/22/23 08:53 07/24/23 20:52 Acetaminophen 325 Mg Tablet PO 650 mg Q4H PRN Administration Mild Pain (1-3) or Fever Dextrose 12.5 gm 07/23/23 10:47 Dextrose 50% 25 Gm/50 Ml Syringe IV PUSH PRN PRN Hypoglycemia Protocol Enoxaparin Sodium 40 mg 07/22/23 09:00 07/24/23 08:19 Enoxaparin 40 Mg/0.4 Ml Syringe SUB-Q 40 mg DAILY GREG Administration Glucagon 1 mg 07/23/23 10:47 Glucagon For Inj 1 Mg Vial IM PRN PRN Hypoglycemia Protocol Glucose 15 gm 07/23/23 10:47 Glucose Oral Gel 15 Gm Of Glucse In 37.5 Gm Tube PO PRN PRN Hypoglycemia Protocol Ceftriaxone Sodium 2 gm in 100 mls @ 200 mls/hr 07/23/23 12:00 07/25/23 09:58 Rocephin 2 Gm/Ns 100 Ml IVPB 200 mls/hr DAILY GREG Administration Dextrose 1,000 mls @ 100 mls/hr 07/23/23 10:47 Dextrose 5% 1,000 Ml IVPB PRN PRN Hypoglycemia Protocol Insulin Aspart 2 - 5 units 07/23/23 12:00 07/25/23 08:00 Insulin Aspart (*Bkc) 100 Units/Ml SUB-Q Not Given TIDWM GREG Prot
--- NOTE | 2023-07-25 11:05 | PM.IMPN ---
Progress Note: A&P Assessment and Plan (1) Acute pyelonephritis: Code(s): N10 - Acute pyelonephritis Status: Acute (2) Bacteremia: Code(s): R78.81 - Bacteremia Status: Acute (3) RITA (acute kidney injury): Code(s): N17.9 - Acute kidney failure, unspecified Status: Acute Plan Sepsis w/o septic shock-RESOLVED -Secondary to UTI/Pyelonephritis -UA and blood cultures gram negative bacilli -lactic pending wasn't drawn on admission -Ceftriaxone 2g IV pending sensitivity Pyelonephritis -CT Mild right hydroureteronephrosis with extensive right perinephric fluid/stranding and mildly delayed right nephrogram - urology consult and following - UA and blood shows ECOLI - ceftriaxone 2 g IV 2 weeks 3/14 doses likely D/C on cephalosporin PO pending 2nd set blood cultures - if no resolution will need follow-up CT - WBC trending down bacteremia - gram-negative bacilli likely secondary to UTI - ceftriaxone 2 g IV ECOLI 3/14 doses given - follow-up blood cultures Pending -likely D/C on cephalosporin PO pending 2nd set blood cultures UTI -Urine cultures and blood cultures -Continue IV hydration. -Monitor CBC, CMP watch for sepsis. -Monitor vital signs. -Ceftriaxone -Monitor for obstructive uropathy current pyelonephritis -F/U CT if no improvement on Diabetes-NEW ONSET -Accu-Cheks a.c. HS -sliding scale insulin -started on 13U lantus HS -Hemoglobin A1c goal less than 7 Currently 11 -lipid panel pending -Diabetic diet -consult to dietitian -encourage lifestyle modifications and weight loss -Optimize Brian inhibitors and statins. -Watch for hypoglycemia/hypoglycemic protocol ordered Code status: Full code per patient DVT prophylaxis: SCD Stress ulcer prophylaxis: Protonix 40 daily PT/OT notes: ambulatory Disposition: patient admitted to medical-surgical unit for further evaluation and treatment pyelonephritis urology following Continued IV antibiotic therapy will need 14 days/doses. Patient is self pay will likely need to stay hospitalized to complete IV antibiotic therapy. Patient is ambulatory and will discharge with family medically stable. -Patient's previous records reviewed on admission -ER notes reviewed in detail on admission -discussed all findings and current treatment plan with patient/Family/POA -Consultations reviewed for recommendations -Patient's disposition for safe discharge discussed with onsite case manager Dictation performed by [employer] direct speech recognition software, therefore chlorinator variants and typographical errors may occur. Time Spent With Patient Time with patient: 25 - 35 minutes Subjective Date/time seen: 07/25/23 11:05 Interval history: Chief Complaint: Right flank pain Nausea and vomiting Narrative: Alhaji Darby is a 68 yo F with a mHx significant for obesity She presents with concerns of right flank pain with radiates downwards to the pelvis, is intermittent, rated 8-10, no known aggravating or alleviating factors, associated with nausea, vomiting, chills, malaise, fatigue and anorexia. She denies dizziness, chest pain, LOC, skin/joint changes. She does not smoke/chew tobacco, vape nicotine or consume recreational drugs; her family Hx is not contributory to the PC Work-up findings: UA: +glycosuria; +LE; WBC 51-100; -ve Bacteria; -ve Nitrite WBC 21 Hb 13 Platelet 286 Na 135 AG 5 BUN 24 Cr 1.1 GFR 50 ALP 135 CTAP:?Mild right hydroureteronephrosis with extensive right perinephric fluid/stranding and mildly delayed right nephrogram. Findings suggest sequela of recently passed stone. No definite stone seen currently. No definite evidence for pyelonephritis. Correlate with urinalysis.She will be admitted, evaluated and managed for UTI with pyelonephritis 07/23: Patient thai speaking only at bedside stratus heel breaster used to provide information.? Patient reported
[2023-07-25 11:23] LABS: Glucose Point of Care 232 mg/dl (65-105)
[2023-07-25] MEDS: INSULIN ASPART (*BKC) 100 UNITS/ML SUB-Q (11:35)
[2023-07-25 12:00] VITALS: BP 170/70; PULSE 79; RESP 16; TEMP 36.6; O2SAT 98
[2023-07-25 16:00] VITALS: BP 170/64; PULSE 75; RESP 16; TEMP 36.9; O2SAT 96
[2023-07-25 16:50] LABS: Glucose Point of Care 156 mg/dl (65-105)
[2023-07-25 20:00] VITALS: BP 164/65; PULSE 75; RESP 19; TEMP 36.4; O2SAT 100
[2023-07-25] MEDS: INSULIN GLARGINE (*BKC) 100 UNITS/ML 13 UNITS SUB-Q (21:11)
[2023-07-25] MEDS: ACETAMINOPHEN 325 MG TABLET 650 MG PO (21:15)
[2023-07-25 21:21] LABS: Glucose Point of Care 162 mg/dl (65-105)
[2023-07-26] VITALS: BP 165/64; PULSE 62; RESP 19; TEMP 36.1; O2SAT 99
[2023-07-26 04:00] VITALS: BP 179/62; PULSE 63; RESP 19; TEMP 36.1; O2SAT 100
[2023-07-26 06:50] LABS: Basophils Absolute Auto 0.1 K/mm3 (0.0-0.1); Basophils Percent Auto 0.9 % (0.2-1.2); Eosinophils Absolute Auto 0.2 K/mm3 (0-0.3); Eosinophils Percent Auto 2.7 % (0-4.4); Hematocrit 36.8 % (37.0-47.0); Hemoglobin 12.1 g/dL (12.0-15.0); Immature Granulocyte Absolute 0.05 K/mm3 (0.00-0.031); Immature Granulocyte Percent A 0.7 % (0-0.5); Lymphocytes Absolute Auto 1.22 K/mm3 (0.9-3.2); Lymphocytes Percent Auto 17.7 % (18.3-44.2); Mean Corpuscular HGB Conc 32.9 g/dl (32-36); Mean Corpuscular Hemoglobin 28.3 pg (26-34); Mean Corpuscular Volume 86.2 fl (80-100); Mean Platelet Volume 12.1 fl (7.4-10.4); Monocytes Absolute Auto 0.7 K/mm3 (0.1-0.6); Monocytes Percent Auto 10.7 % (2.6-8.5); Neutrophils Absolute Auto 4.7 K/mm3 (1.3-6.7); Neutrophils Percent Auto 67.3 % (45.5-73.1); Platelet Count Result 270 k/mm3 (150-375); Red Blood Count 4.27 M/mm3 (4.2-5.4); Red Cell Distribution Width 13.1 % (11.5-14.5); White Blood Count 6.9 K/mm3 (4.5-10.0)
[2023-07-26 07:08] LABS: Alanine Aminotransferase 26 U/L (6-35); Albumin Level 3.6 g/dL (3.5-5.1); Alkaline Phosphatase 193 U/L (38-126); Anion Gap 7 mmol/L (8-16); Aspartate Amino Transferase 33 U/L (14-36); Bilirubin,Total 0.5 mg/dL (0.2-1.3); Blood Urea Nitrogen 15 mg/dL (7-17); Calcium 9.1 mg/dL (8.4-10.2); Carbon Dioxide 27 mmol/L (22-30); Chloride 106 mmol/L (98-107); Estimated CRCL calculation 44 ml/min; Estimated Glomerular Filt Rate > 60; Glucose 137 mg/dL (65-110); Potassium 3.7 mmol/L (3.4-5.0); Sodium 140 mmol/L (137-145)
[2023-07-26 07:35] LABS: Glucose Point of Care 132 mg/dl (65-105)
[2023-07-26 08:00] VITALS: BP 179/72; PULSE 63; RESP 16; TEMP 35.8; O2SAT 99
--- NOTE | 2023-07-26 09:37 | WPDUROPN2 ---
Progress Note: A&P Assessment and Plan (1) Acute pyelonephritis: Code(s): N10 - Acute pyelonephritis Status: Acute Assessment and Plan: CT is consistent with pyelo. she has had clinical improvement with resolution of pain and normalization of white blood cell count and creatinine. Has Ecoli in blood and urine, sensitive to cephalosporins. repeat blood cultures pending to ensure resolution of bacteremia, preliminary cultures with no growth today (2) Bacteremia: Code(s): R78.81 - Bacteremia Status: Acute Assessment and Plan: Currently on rocephin. Urine and blood cultures both show Ecoli, sensitive to cephalosporins. Anticipate she could complete the 2 weeks of abx with PO cephalosporins if repeat blood cultures show resolution of bacteremia. (3) RITA (acute kidney injury): Code(s): N17.9 - Acute kidney failure, unspecified Status: Acute Assessment and Plan: Resolved; Cr has normalized. 0.9 today Subjective Subjective Date/Time Seen: 07/26/23 09:37 Interval history: Mehnaz is feeling well today. she reports resolution of right flank pain. denies nausea, vomiting, fever, or chills. Tolerating her diet. She remains afebrile and vital signs are stable. Communication occurred with the use of matrix worker. Review of Systems Review of Systems: All systems reviewed & are unremarkable except as noted in HPI and below Exam Narrative: General: Awake, alert, comfortable, no acute distress HEENT: Normocephalic, atraumatic, sclerae anicteric Respiratory: Normal respiratory effort, no accessory muscle use Abdomen: Nondistended, soft, nontender Skin: Normal coloration, warm and dry Neurologic: No focal neuro deficits noted Psychiatric: Appropriate mood and affect, judgment and insight intact Objective Data Vital Signs Vital Signs: Vital Signs - 24 hr 07/25/23 12:00 07/25/23 10:00 07/25/23 16:00 Temperature 97.9 F 98.4 F Pulse Rate 79 75 Respiratory Rate 16 16 Blood Pressure 170/70 H 170/64 H Pulse Oximetry 98 96 Oxygen Delivery Room Air 07/25/23 20:00 07/25/23 20:00 07/26/23 00:00 Temperature 97.5 F L 97 F L Pulse Rate 75 62 Respiratory Rate 19 19 Blood Pressure 164/65 H 165/64 H Pulse Oximetry 100 99 Oxygen Delivery Room Air 07/26/23 04:00 07/26/23 08:00 Temperature 96.9 F L 96.5 F L Pulse Rate 63 63 Respiratory Rate 19 16 Blood Pressure 179/62 H 179/72 H Pulse Oximetry 100 99 Oxygen Delivery Intake/Output Intake/Output: Intake & Output 07/23/23 07/24/23 07/25/23 07/26/23 23:59 23:59 23:59 23:59 Intake Total 3540 2120 820 390 Balance 3540 2120 820 390 Meds/Results Medications: Active Medications Generic Name Dose Route Start Last Admin Trade Name Freq PRN Reason Stop Dose Admin Acetaminophen 650 mg 07/22/23 08:53 07/25/23 21:15 Acetaminophen 325 Mg Tablet PO 650 mg Q4H PRN Administration Mild Pain (1-3) or Fever Dextrose 12.5 gm 07/23/23 10:47 Dextrose 50% 25 Gm/50 Ml Syringe IV PUSH PRN PRN Hypoglycemia Protocol Enoxaparin Sodium 40 mg 07/22/23 09:00 07/25/23 10:00 Enoxaparin 40 Mg/0.4 Ml Syringe SUB-Q 40 mg DAILY GREG Administration Glucagon 1 mg 07/23/23 10:47 Glucagon For Inj 1 Mg Vial IM PRN PRN Hypoglycemia Protocol Glucose 15 gm 07/23/23 10:47 Glucose Oral Gel 15 Gm Of Glucse In 37.5 Gm Tube PO PRN PRN Hypoglycemia Protocol Ceftriaxone Sodium 2 gm in 100 mls @ 200 mls/hr 07/23/23 12:00 07/25/23 10:28 Rocephin 2 Gm/Ns 100 Ml IVPB Infused DAILY GREG Infusion Dextrose 1,000 mls @ 100 mls/hr 07/23/23 10:47 Dextrose 5% 1,000 Ml IVPB PRN PRN Hypoglycemia Protocol Insulin Aspart 2 - 5 units 07/23/23 12:00 07/25/23 17:17 Insulin Aspart (*Bkc) 100 Units/Ml SUB-Q Not Given TIDWM [facility] Protocol Insulin Glargine 13 units 07/23/23 21:00 07/25/23 21
[2023-07-26] MEDS: PANTOPRAZOLE 40 MG TABLET PO (10:35)
[2023-07-26] MEDS: LOSARTAN POTASSIUM 50 MG TABLET 100 MG PO (10:35)
[2023-07-26] MEDS: ACETAMINOPHEN 325 MG TABLET 650 MG PO (10:35)
[2023-07-26] MEDS: cefTRIAXone 2 GM/NS 100 ML 2 GM/100 ML BAG IVPB (10:35)
[2023-07-26] MEDS: ENOXAPARIN 40 MG/0.4 ML SYRINGE SUB-Q (10:38)
[2023-07-26] MEDS: NIFEdipine 30 MG TAB.ER.24 PO (10:38)
[2023-07-26 11:20] LABS: Glucose Point of Care 170 mg/dl (65-105)
[2023-07-26 12:00] VITALS: BP 190/73; PULSE 76; RESP 16; TEMP 36.2; O2SAT 97
[2023-07-26 13:15] VITALS: BMI 26.9
--- NOTE | 2023-07-26 13:31 | PM.IMPN ---
Subjective Date/time seen: 07/26/23 13:31 Objective Data Vital Signs Vital Signs: Vital Signs - 24 hr 07/25/23 16:00 07/25/23 20:00 07/25/23 20:00 Temperature 98.4 F 97.5 F L Pulse Rate 75 75 Respiratory Rate 16 19 Blood Pressure 170/64 H 164/65 H Pulse Oximetry 96 100 Oxygen Delivery Room Air 07/26/23 00:00 07/26/23 04:00 07/26/23 08:00 Temperature 97 F L 96.9 F L 96.5 F L Pulse Rate 62 63 63 Respiratory Rate 19 19 16 Blood Pressure 165/64 H 179/62 H 179/72 H Pulse Oximetry 99 100 99 Oxygen Delivery 07/26/23 12:00 Temperature 97.1 F L Pulse Rate 76 Respiratory Rate 16 Blood Pressure 190/73 H Pulse Oximetry 97 Oxygen Delivery Intake/Output Intake/Output: Intake & Output 07/23/23 07/24/23 07/25/23 07/26/23 23:59 23:59 23:59 23:59 Intake Total 3540 2120 820 390 Balance 3540 2120 820 390 Meds/Results Medications: Active Medications Generic Name Dose Route Start Last Admin Trade Name Freq PRN Reason Stop Dose Admin Acetaminophen 650 mg 07/22/23 08:53 07/26/23 10:35 Acetaminophen 325 Mg Tablet PO 650 mg Q4H PRN Administration Mild Pain (1-3) or Fever Dextrose 12.5 gm 07/23/23 10:47 Dextrose 50% 25 Gm/50 Ml Syringe IV PUSH PRN PRN Hypoglycemia Protocol Enoxaparin Sodium 40 mg 07/22/23 09:00 07/26/23 10:38 Enoxaparin 40 Mg/0.4 Ml Syringe SUB-Q 40 mg DAILY GREG Administration Glucagon 1 mg 07/23/23 10:47 Glucagon For Inj 1 Mg Vial IM PRN PRN Hypoglycemia Protocol Glucose 15 gm 07/23/23 10:47 Glucose Oral Gel 15 Gm Of Glucse In 37.5 Gm Tube PO PRN PRN Hypoglycemia Protocol Hydralazine HCl 20 mg 07/26/23 13:29 Hydralazine Hcl 20 Mg/Ml Vial IV PUSH Q8H PRN Hypertension Hydralazine HCl 20 mg 07/26/23 13:30 Hydralazine Hcl 20 Mg/Ml Vial IV PUSH 07/26/23 13:31 ONCE ONE Ceftriaxone Sodium 2 gm in 100 mls @ 200 mls/hr 07/23/23 12:00 07/26/23 10:35 Rocephin 2 Gm/Ns 100 Ml IVPB 200 mls/hr DAILY GREG Administration Dextrose 1,000 mls @ 100 mls/hr 07/23/23 10:47 Dextrose 5% 1,000 Ml IVPB PRN PRN Hypoglycemia Protocol Insulin Aspart 2 - 5 units 07/23/23 12:00 07/26/23 11:56 Insulin Aspart (*Bkc) 100 Units/Ml SUB-Q Not Given TIDWM [facility] Protocol Insulin Glargine 13 units 07/23/23 21:00 07/25/23 21:11 Insulin Glargine (*Bkc) 100 Units/Ml 0.2 units/kg (13 units) 13 units SUB-Q Administration HS GREG Losartan Potassium 100 mg 07/25/23 09:00 07/26/23 10:35 Losartan Potassium 50 Mg Tablet PO 100 mg DAILY GREG Administration Nifedipine 30 mg 07/26/23 09:00 07/26/23 10:38 Nifedipine 30 Mg Tab.Er.24 PO 30 mg QAM GREG Administration Pantoprazole Sodium 40 mg 07/24/23 09:00 07/26/23 10:35 Pantoprazole 40 Mg Tablet PO 40 mg QAM GREG Administration Radiology Results: ITS Impressions Abdomen/Pelvis CT 07/22/23 06:03 Impression: Mild right hydroureteronephrosis with extensive right perinephric fluid/stranding and mildly delayed right nephrogram. Findings suggest sequela of recently passed stone. No definite stone seen currently. No definite evidence for pyelonephritis. Correlate with urinalysis. Labs Labs: Laboratory Results - last 24 hr 07/25/23 07/25/23 07/26/23 16:36 20:41 06:30 WBC 6.9 RBC 4.27 Hgb 12.1 Hct 36.8 L MCV 86.2 MCH 28.3 MCHC 32.9 RDW 13.1 Plt Count 270 MPV 12.1 H Immature Gran % (Auto) 0.7 H Neut % (Auto) 67.3 Lymph % (Auto) 17.7 L [place] % (Auto) 10.7 H Eos % (Auto) 2.7 Baso % (Auto) 0.9 Lymph # (Auto) 1.22 [place] # (Auto) 0.7 H Eos # (Auto) 0.2 Baso # (Auto) 0.1 Abs Immat Gran (auto) 0.05 H Absolute Neuts (auto) 4.7 Absolute Nucleated RBC 0.0 Nucleated RBC % 0.0 Sodium 140 Potassium 3.7 Chloride 106 Carbon Dioxide 27 Anion Gap 7 L BUN 15 Cre
--- NOTE | 2023-07-26 13:32 | PM.IMPN ---
Progress Note: A&P Assessment and Plan (1) Acute pyelonephritis: Code(s): N10 - Acute pyelonephritis Status: Acute (2) Bacteremia: Code(s): R78.81 - Bacteremia Status: Acute (3) RITA (acute kidney injury): Code(s): N17.9 - Acute kidney failure, unspecified Status: Acute (4) Hypertension: Code(s): I10 - Essential (primary) hypertension Status: Acute Plan Sepsis w/o septic shock-RESOLVED -Secondary to UTI/Pyelonephritis -UA and blood cultures gram negative bacilli -lactic pending wasn't drawn on admission -Ceftriaxone 2g IV pending sensitivity Pyelonephritis -CT Mild right hydroureteronephrosis with extensive right perinephric fluid/stranding and mildly delayed right nephrogram - urology consult and following - UA and blood shows ECOLI - ceftriaxone 2 g IV 2 weeks 4/14 doses likely D/C on cephalosporin PO pending 2nd set blood cultures - 2nd set BC NGTD 24 hrs - WBC trending down bacteremia - gram-negative bacilli likely secondary to UTI - ceftriaxone 2 g IV ECOLI 4/14 doses given - 2nd set BC NGTD 24 hrs -likely D/C on cephalosporin PO UTI -ECOLI sensitive to cephalosporins -Continue IV hydration. -Monitor CBC, CMP watch for sepsis. -Monitor vital signs. -Ceftriaxone IV switch to PO if 2nd set BC show resolution -Monitor for obstructive uropathy current pyelonephritis -F/U CT if no improvement on HTN -new onset -added losartan 100 daily and Procardia 30mg dialy -hydralazine PRN systolic >160 -lipid panel Diabetes-NEW ONSET -Accu-Cheks a.c. HS -sliding scale insulin -started on 13U lantus HS -Hemoglobin A1c goal less than 7 Currently 11 -lipid panel pending -Diabetic diet -consult to dietitian -encourage lifestyle modifications and weight loss -Optimize Brian inhibitors and statins. -Watch for hypoglycemia/hypoglycemic protocol ordered Code status: Full code per patient DVT prophylaxis: SCD Stress ulcer prophylaxis: Protonix 40 daily PT/OT notes: ambulatory Disposition: patient admitted to medical-surgical unit for further evaluation and treatment pyelonephritis urology following Continued IV antibiotic therapy if BC with no growth tomorrow 48hrs can discharge on PO ABX. Time Spent With Patient Time with patient: 25 - 35 minutes Subjective Date/time seen: 07/26/23 13:32 Interval history: Chief Complaint: Right flank pain Nausea and vomiting Narrative: Alhaji Darby is a 68 yo F with a mHx significant for obesity She presents with concerns of right flank pain with radiates downwards to the pelvis, is intermittent, rated 8-10, no known aggravating or alleviating factors, associated with nausea, vomiting, chills, malaise, fatigue and anorexia. She denies dizziness, chest pain, LOC, skin/joint changes. She does not smoke/chew tobacco, vape nicotine or consume recreational drugs; her family Hx is not contributory to the PC Work-up findings: UA: +glycosuria; +LE; WBC 51-100; -ve Bacteria; -ve Nitrite WBC 21 Hb 13 Platelet 286 Na 135 AG 5 BUN 24 Cr 1.1 GFR 50 ALP 135 CTAP:?Mild right hydroureteronephrosis with extensive right perinephric fluid/stranding and mildly delayed right nephrogram. Findings suggest sequela of recently passed stone. No definite stone seen currently. No definite evidence for pyelonephritis. Correlate with urinalysis.She will be admitted, evaluated and managed for UTI with pyelonephritis 07/23: Patient scottish speaking only at bedside stratus single stroke preformer used to provide information.? Patient reported continued RT flank pain that radiated to her right abdominal area.? Denied any difficulty urinating, fever, or chills.? Blood culture and urine culture grew gram negative bacilli continue with ceftriaxone? 2g IV pending sensitivity. 07/24: Patient UA and bacteremia? sensitive to Rocephin IV will need for 2 weeks received 2/14 doses.? Patient has no insurance will?
[2023-07-26] MEDS: hydrALAZINE HCL 20 MG/ML VIAL IV PUSH (14:18)
[2023-07-26 15:38] LABS: Glucose Point of Care 229 mg/dl (65-105)
[2023-07-26 16:00] VITALS: BP 127/55; PULSE 85; RESP 18; TEMP 36.1; O2SAT 97
[2023-07-26 16:26] LABS: Glucose Point of Care 203 mg/dl (65-105)
[2023-07-26] MEDS: INSULIN ASPART (*BKC) 100 UNITS/ML SUB-Q (17:57)
[2023-07-26 20:00] VITALS: BP 129/56; PULSE 82; RESP 20; TEMP 36.4; O2SAT 98
[2023-07-26 21:08] LABS: Glucose Point of Care 182 mg/dl (65-105)
[2023-07-26] MEDS: INSULIN GLARGINE (*BKC) 100 UNITS/ML 13 UNITS SUB-Q (21:17)
[2023-07-27] VITALS: BP 144/66; PULSE 80; RESP 20; TEMP 36.4; O2SAT 99
[2023-07-27 04:00] VITALS: BP 154/67; PULSE 71; RESP 20; TEMP 36.9; O2SAT 100
[2023-07-27 07:27] LABS: Basophils Absolute Auto 0.1 K/mm3 (0.0-0.1); Eosinophils Absolute Auto 0.2 K/mm3 (0-0.3); Eosinophils Percent Auto 2.4 % (0-4.4); Hematocrit 36.4 % (37.0-47.0); Hemoglobin 11.4 g/dL (12.0-15.0); Immature Granulocyte Absolute 0.07 K/mm3 (0.00-0.031); Mean Corpuscular HGB Conc 31.3 g/dl (32-36); Mean Corpuscular Hemoglobin 27.5 pg (26-34); Mean Corpuscular Volume 87.9 fl (80-100); Mean Platelet Volume 11.7 fl (7.4-10.4); Monocytes Absolute Auto 0.7 K/mm3 (0.1-0.6); Monocytes Percent Auto 10.3 % (2.6-8.5); Neutrophils Absolute Auto 4.5 K/mm3 (1.3-6.7); Neutrophils Percent Auto 67.3 % (45.5-73.1); Platelet Count Result 308 k/mm3 (150-375); Red Blood Count 4.14 M/mm3 (4.2-5.4); Red Cell Distribution Width 13.1 % (11.5-14.5); White Blood Count 6.7 K/mm3 (4.5-10.0)
[2023-07-27 07:43] LABS: Alanine Aminotransferase 31 U/L (6-35); Albumin Level 3.7 g/dL (3.5-5.1); Alkaline Phosphatase 207 U/L (38-126); Anion Gap 6 mmol/L (8-16); Aspartate Amino Transferase 40 U/L (14-36); Bilirubin,Total 0.5 mg/dL (0.2-1.3); Blood Urea Nitrogen 20 mg/dL (7-17); Calcium 9.3 mg/dL (8.4-10.2); Carbon Dioxide 28 mmol/L (22-30); Chloride 106 mmol/L (98-107); Estimated CRCL calculation 40 ml/min; Estimated Glomerular Filt Rate 55; Glucose 159 mg/dL (65-110); Potassium 4.2 mmol/L (3.4-5.0); Sodium 140 mmol/L (137-145)
[2023-07-27 07:45] LABS: Glucose Point of Care 146 mg/dl (65-105)
[2023-07-27 08:00] VITALS: BP 183/81; PULSE 77; RESP 18; TEMP 36.3; O2SAT 99
[2023-07-27] MEDS: cefTRIAXone 2 GM/NS 100 ML 2 GM/100 ML BAG IVPB (08:45)
[2023-07-27] MEDS: ENOXAPARIN 40 MG/0.4 ML SYRINGE SUB-Q (08:45)
[2023-07-27] MEDS: PANTOPRAZOLE 40 MG TABLET PO (08:46)
[2023-07-27] MEDS: NIFEdipine 30 MG TAB.ER.24 PO (08:46)
[2023-07-27] MEDS: LOSARTAN POTASSIUM 50 MG TABLET 100 MG PO (08:46)
--- NOTE | 2023-07-27 10:30 | PM.DS ---
DS: Admitting Diagnosis Discharge Date 07/27/2023 Admitting Diagnosis Pyelonephritis DS: Discharge Diagnosis Discharge Diagnosis (1) Acute pyelonephritis: Code(s): N10 - Acute pyelonephritis Status: Acute (2) Bacteremia: Code(s): R78.81 - Bacteremia Status: Acute (3) RITA (acute kidney injury): Code(s): N17.9 - Acute kidney failure, unspecified Status: Acute (4) Hypertension: Qualifiers: Hypertension type: primary hypertension Qualified Code(s): I10 - Essential (primary) hypertension Code(s): I10 - Essential (primary) hypertension Status: Acute Plan Kidney Infection -Take Cefidinar as prescribed -Seek medical attention if symptoms return, fever, chills, tachycardia, difficulty with urination -Rosario Hygiene Diabetes: -educated patient on the need for blood sugar control for wound healing -Hemoglobin A1c goal less than 7 currently 11 -lipid panels q6 months to year -Renal function liver panel every 3 months. . -Optimize Brian inhibitors and statins. -Watch for hypoglycemia/hypoglycemic -BMI goals less than 25. -Yearly eye exam and foot exam. -Exercise, diet low-salt low carb. Weight loss. -Primary care physician general passenger agent as an outpatient. -A1C every 3 months -ACCU check before meals and before bed -Insulin as prescribed Hypertension -Losartan and Procardia as prescribed -monitor blood pressure at home -Low sodium diet DS: Summary Hospital Course Reason for hospitalization: Pyelonephritis/bacteremia/ Hospital Course: She presents with concerns of right flank pain with radiates downwards to the pelvis, is intermittent, rated 8-10, no known aggravating or alleviating factors, associated with nausea, vomiting, chills, malaise, fatigue and anorexia. She denies dizziness, chest pain, LOC, skin/joint changes. She does not smoke/chew tobacco, vape nicotine or consume recreational drugs; her family Hx is not contributory to the PC Work-up findings: UA: +glycosuria; +LE; WBC 51-100; -ve Bacteria; -ve Nitrite WBC 21 Hb 13 Platelet 286 Na 135 AG 5 BUN 24 Cr 1.1 GFR 50 ALP 135 CTAP:?Mild right hydroureteronephrosis with extensive right perinephric fluid/stranding and mildly delayed right nephrogram. Findings suggest sequela of recently passed stone. No definite stone seen currently. No definite evidence for pyelonephritis. Correlate with urinalysis.She will be admitted, evaluated and managed for UTI with pyelonephritis 07/23: Patient greek speaking only at bedside stratus x ray equipment tester used to provide information.? Patient reported continued RT flank pain that radiated to her right abdominal area.? Denied any difficulty urinating, fever, or chills.? Blood culture and urine culture grew gram negative bacilli continue with ceftriaxone? 2g IV pending sensitivity. 07/24: Patient UA and bacteremia? sensitive to Rocephin IV will need for 2 weeks received 2/14 doses.? Patient has no insurance will? likely need to stay hospitalized for 12 more days. follow-up blood cultures are ordered for tomorrow to ensure clearance.? Food Analyst with [employer] #[id number] 07/25: Patient reports improvement to CVA pain and WBC 9.8 today.? 2nd set of blood cultures pending per urology can likely discharge on PO cephalosporin ( cefdinir?) if blood cultures show clearance. Food Analyst [id number] [employer]. 07/22: Patient reports overall improvement and denies any further CVA pain.? Tolerating oral intake, afebrile, and normal WBC.? 2nd set blood cultures NGTD 24hrs.? Patient to discharge tomorrow on oral cephalosporin if cultures show no growth.? Patient continues to be hypertensive added Procardia and hydralazine PRN. [employer] x ray equipment tester [id number]/Marisol? 07/23: Patient greek speaking only at bedside stratus x ray equipment tester used to provide information.? Patient reported continued RT flank pain that radiated to her right abdominal area.? Denied any difficulty u
--- NOTE | 2023-07-27 12:23 | PC.NURSE ---
all d/c paper discussed with patient over stratus. denies any further questions. She is aware of f/u appointments with urology. iv out, all belongings with patient. wheeled out to private car.
== END 2023-07-27 12:25 | disposition home or self-care (01) | DRG 463 ==
LOC: ANHED 06:44 → ANH3MEDSUR 07:40
PROVIDERS: Internal Medicine; Nurse Practitioner Family; Admitting Provider Internal Medicine; Emergency Provider Emergency Medicine; Visit Provider Internal Medicine
DX: N10 Acute pyelonephritis (principal); B96.20 Unspecified Escherichia coli [E. coli] as the cause of diseases classified elsewhere; Z16.19 Resistance to other specified beta lactam antibiotics; R78.81 Bacteremia; N17.9 Acute kidney failure, unspecified; N39.0 Urinary tract infection, site not specified; E11.9 Type 2 diabetes mellitus without complications; I10 Essential (primary) hypertension
CPT/HCPCS: 36415; 74177; 80053; 80061; 81001; 82948; 83036; 83605; 83690; 85025; 87040; 87086; 87186; 96361; 96365; 96367; 96375; 96376; 99285; A9270; G0378; J0360; J0696; J1170; J1650; J1815; J1885; J2270; J2405; J2543; J7030; Q9967